=== PATIENT | female | born 1995 | race Caucasian/White ===

== ENCOUNTER 2017-03-30 18:36 | Emergency (ER) | payer BC, OTHER ==
[~2017-03-30] VITALS: Ht 172.7 cm; Wt 54.4 kg
[2017-03-30] MEDS: ONDANSETRON ODT 4 MG TAB.RAPDIS SL ONE (19:44)
[2017-03-30] MEDS: DIPHENOXYLATE HCL/ATROP SULF TABLET PO ONE (19:44)
[2017-03-30] MEDS ORDERED: ONDANSETRON ODT 4 MG TAB.RAPDIS ONE (19:57)
[2017-03-30 19:58] LABS: *URINE HCG, QUAL NEGATIVE (NEGATIVE)
[2017-03-30] MEDS ORDERED: DIPHENOXYLATE HCL/ATROP SULF TABLET ONE (19:58)
--- NOTE | 2017-03-30 20:18 | NUR ---
Patient discharged to home in stable conditon. Written and verbal after care instructions given. Patient verbalizes understanding of instructions. PATIENT LEFT WITH STABLE GAIT.
[2017-03-30 20:19] VITALS: BP 131/68
== END 2017-03-30 20:19 | disposition home or self-care (01) ==
LOC: ER 18:38
DX: K52.9 Noninfective gastroenteritis and colitis, unspecified (principal); R10.9 Unspecified abdominal pain
CPT/HCPCS: 84703; 99283; A4663; Q0162